=== PATIENT | male | born 2000 | race Caucasian/White ===

== ENCOUNTER → 2020-07-22 | Outpatient (CLI) | payer OTHER ==
--- NOTE | 2020-07-22 15:16 | REP ---
INDICATION: MAMADOU LOWER EXT LEG PAIN ? STRESS FX 2 year history of low left lower 3rd tibial pain with running. Tenderness to palpation. COMPARISON: No comparison imaging.. TECHNIQUE/RADIOTRACER AND DOSE: 21.7 mCi of technetium 99 M MDP is injected intravenously and standard 3 phase imaging of the lower extremities is acquired. FINDINGS: Anterior and posterior flow images show normal symmetric perfusion of the lower extremities. Blood pool images show symmetric blood pool uptake. No soft tissue hyperemia is appreciated. Delayed scan images show no focal area of increased uptake in either tibia or fibula to suggest stress periostitis or stress fracture. IMPRESSION: Normal 3 phase bone scan of the tibia and fibula regions bilaterally. <Electronically signed by Leoncio Alcantara > 07/22/20 0896
== END ==
LOC: M RAD 11:03
PROVIDERS: ATTEND Emergency Medicine
DX: M79.605 Pain in left leg (principal)
CPT/HCPCS: 78315; A9503